=== PATIENT | male | born 1965 | race Caucasian/White ===

== ENCOUNTER 2020-07-29 13:56 | Outpatient (RCR) | payer OTHER | END 2020-10-27 | disposition home or self-care (01) | LOC: ONC 13:56 | PROVIDERS: ATTEND Radiology Radiation Oncology | DX: C61 Malignant neoplasm of prostate (principal); I10 Essential (primary) hypertension; E66.01 Morbid (severe) obesity due to excess calories; D64.9 Anemia, unspecified; Z86.718 Personal history of other venous thrombosis and embolism; Z87.891 Personal history of nicotine dependence; Z79.899 Other long term (current) drug therapy | CPT/HCPCS: 99204 ==

== ENCOUNTER 2020-11-26 05:33 | Outpatient (CLI) | payer OTHER ==
[~2020-11-26] VITALS: Ht 188 cm; Wt 148.2 kg
[2020-11-26] MEDS ORDERED: CHOL500044 PO (13:12)
[2020-11-26] MEDS ORDERED: MULT-1136 PO (13:12)
[2020-11-26] MEDS ORDERED: CHLO25TA22 PO (13:12)
[2020-11-26] MEDS ORDERED: TMSL.4C PO (13:12)
[2020-11-26] MEDS ORDERED: SILD20TA14 PO (13:12)
== END 2020-11-26 13:16 ==
LOC: PREOP 05:33
PROVIDERS: ATTEND Radiology Radiation Oncology
DX: Z01.818 Encounter for other preprocedural examination (principal)

== ENCOUNTER 2020-12-03 08:48 | Day surgery (SDC) | payer OTHER ==
[2020-12-03] VITALS (11 sets, daily range): BP systolic 118–144; BP diastolic 70–88
[~2020-12-03] VITALS: Ht 188 cm; Wt 148.2 kg
[~2020-12-03 08:48] MED LIST: CHLO25TA22 PO; CHOL500044 PO; MULT-1136 PO; SILD20TA14 PO; TMSL.4C PO
[2020-12-03] MEDS ORDERED: LACTATED RINGERS 1,000 ML IV PRN (09:00)
--- NOTE | 2020-12-03 10:04 | Progress Note-Pre Operative ---
Pre-Operative Progress Note H&P Reviewed The H&P was reviewed, patient examined and no changes noted. Date Seen by Provider: Dec 03, 2020 Time Seen by Provider: 10: Date H&P Reviewed: Dec 03, 2020 Time H&P Reviewed: 10:03 Pre-Operative Diagnosis: Prostate cancer cT1c, PSA 5.95, [place] 7 (3+4) SYLVIA WORTHY MD Dec 03, 2020 10:04
[2020-12-03] MEDS ORDERED: CIPR-226 PO (10:07)
[2020-12-03] MEDS ORDERED: ACET1TAB43 PO (10:07)
--- NOTE | 2020-12-03 10:09 | Discharge Inst-Simple/Standard ---
Discharge Inst-Standard Reconcile Patient Problems Problems Reviewed?: Yes Discharge Medications New, Converted or Re-Newed RX: RX Given to Pt/Family Patient Instructions/Follow Up Plan of Care/Instructions/FU: 1)one month follow up with Dr. 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 SYLVIA WORTHY MD Dec 03, 2020 10:09
[2020-12-03] MEDS ORDERED: MIDAZOLAM 2 MG/2 ML (VERSED) VIAL ONE (10:42)
[2020-12-03] MEDS ORDERED: ONDANSETRON 4 MG/2 ML (SDV) Z0FRAN ONE (10:42)
[2020-12-03] MEDS ORDERED: proPOfol 200 MG/20 ML (DIPRIVAN) VIAL IV ONE (10:42)
[2020-12-03] MEDS ORDERED: SEVOFLURANE (ULTANE) 15 ML INHAL SOLN ONE ×2 (10:42→12:23)
[2020-12-03] MEDS ORDERED: fentaNYL INJ 100 MCG/2 ML AMP ONE (10:42)
[2020-12-03] MEDS ORDERED: LIDOCAINE PF 2% 5 ML (XYLOCAINE) VIAL ONE (10:42)
[2020-12-03] MEDS ORDERED: BACITRACIN OINTMENT 28 GM TUBE ONE (11:38)
--- NOTE | 2020-12-03 12:14 | Anesthesia-General Post-Op ---
General Patient Condition Mental Status/LOC: Same as Preop Cardiovascular: Satisfactory Nausea/Vomiting: Absent Respiratory: Satisfactory Pain: Controlled Complications: Absent Post Op Complications Complications None Follow Up Care/Instructions Patient Instructions None needed. Anesthesia/Patient Condition Patient Condition Patient is doing well, no complaints, stable vital signs, no apparent adverse anesthesia problems. No complications reported per nursing. XAVI SOSA CRNA Dec 03, 2020 12:14
[2020-12-03] MEDS ORDERED: ONDANSETRON 4 MG/2 ML (SDV) Z0FRAN IVP PRN (12:15)
[2020-12-03] MEDS ORDERED: MEPERIDINE (DEMEROL) INJ 50 MG/ML IVP ONE (12:15)
[2020-12-03] MEDS ORDERED: morphine INJ 10 MG/ML 1ML (SYR OR VIAL) IVP ONE (12:15)
--- NOTE | 2020-12-03 12:44 | Progress Note-Post Operative ---
Post-Operative Progess Note Surgeon (s)/Car Seat Maker (s) Surgeon SYLVIA WORTHY MD Car Seat Maker: Jayant COLVIN MD Pre-Operative Diagnosis Prostate cancer cT1c, PSA 5.95, [place] 7 (3+4) Post-Operative Diagnosis Same as preop Procedure & Operative Findings Date of Procedure 12/03/20 Procedure Performed/Findings (1) 100% Cesium 131 permanent prostate seed implant (2) Injection of biodegradable hydrogel prostate-rectal spacer utilizing the SpaceOAR system (3) Cystogram Prostate volume 39 cc Anesthesia Type General Estimated Blood Loss Estimated blood loss (mL): Minimal Specimens/Packing Specimens Removed None Packing: None SYLVIA WORTHY MD Dec 03, 2020 12:44
[2020-12-03] MEDS ORDERED: APAP 300 MG/CODEINE 30 MG (TYLENOL #3) TAB PO ONE (13:30)
--- NOTE | 2020-12-03 14:02 | Diagnostic Imaging Report ---
INDICATION: Fluoroscopy during brachytherapy. FINDINGS: Fluoroscopy was provided for Dr. Pizarro during brachytherapy. A total of 11 seconds of fluoroscopic time was utilized. A single image was obtained demonstrating multiple radiation seed implants within the prostate gland. IMPRESSION: Fluoroscopy during brachytherapy. Dictated by: Dictated on workstation # [id number]
== END 2020-12-03 14:40 | disposition home or self-care (01) ==
LOC: SDC 08:48
PROVIDERS: ATTEND Radiology Radiation Oncology
DX: C61 Malignant neoplasm of prostate (principal); E66.01 Morbid (severe) obesity due to excess calories; I10 Essential (primary) hypertension; N40.1 Benign prostatic hyperplasia with lower urinary tract symptoms; I82.409 Acute embolism and thrombosis of unspecified deep veins of unspecified lower extremity; D64.9 Anemia, unspecified; Z86.010 Personal history of colon polyps; Z68.41 Body mass index [BMI] 40.0-44.9, adult; Z90.89 Acquired absence of other organs; Z87.891 Personal history of nicotine dependence; Z79.899 Other long term (current) drug therapy
CPT/HCPCS: 55874; 55875; 76000; 76965; 77290; 77318; 77332; 77370; 77470; 77778; 87081; C1715 ×2; C1889; C2643

== ENCOUNTER 2020-12-31 09:58 | Outpatient (RCR) | payer OTHER ==
[~2020-12-31 09:58] MED LIST changes: +ACET1TAB43 PO; +CIPR-226 PO
== END 2021-02-18 | disposition home or self-care (01) ==
LOC: ONC 09:58
PROVIDERS: ATTEND Radiology Radiation Oncology
DX: C61 Malignant neoplasm of prostate (principal); I10 Essential (primary) hypertension; E66.01 Morbid (severe) obesity due to excess calories; Z85.038 Personal history of other malignant neoplasm of large intestine; Z87.891 Personal history of nicotine dependence
CPT/HCPCS: 76873; 77290; 77295

== ENCOUNTER 2021-06-15 11:08 | Outpatient (RCR) | payer OTHER | END 2021-06-25 | LOC: ONC 11:08 | PROVIDERS: ATTEND Radiology Radiation Oncology | DX: C61 Malignant neoplasm of prostate (principal); I10 Essential (primary) hypertension; E66.01 Morbid (severe) obesity due to excess calories; Z85.038 Personal history of other malignant neoplasm of large intestine; Z87.891 Personal history of nicotine dependence ==